=== PATIENT | male | born 1965 | race Caucasian/White ===

== ENCOUNTER 2024-12-24 10:07 | Emergency (ER) | payer OTHER, SELFPAY ==
[2024-12-24 10:13] VITALS: BP 179/100
[2024-12-24 10:27] VITALS: BMI 25.8
--- NOTE | 2024-12-24 11:28 | ED.GENMED ---
History of Present Illness
General
Chief Complaint: Musculo-Skeletal Complaint
Source: patient
Time Seen by Provider: 12/24/24 11:05
History of Present Illness
History of Present Illness:
59-year-old male with past medical history of hypertension, hyperlipidemia, insulin-dependent diabetes, previous CT, status post cervical fusion from approximately 13 years ago presenting to the emergency department for evaluation of left-sided neck
pain that has been ongoing for the last few weeks/months but made acutely worse this past Monday after he accidentally stumbled and grabbed onto the banister stating his body fell to the right but his left arm and neck went to the left and since
that time has had increased burning paresthesia and pain to the left upper extremity. Patient states it feels as if his left little finger is numb. He recently moved back to this area from [place] and is currently in the process of trying to get a
back/neck specialist. Denies any fevers, headaches, visual disturbances, chest pain or shortness of breath or any other concerns.
Past History
Past History
ED Past Medical History: CAD, HTN, Hypercholesterolemia, IDDM and CT
ED Past Surgical History: Cardiac and Orthopedic
Social History
Tobacco: Non-smoker
Alcohol: None
Drug: None
Personal:
Living: with family
Employment: Employed
Review of Systems
Review of Systems
All Other Systems: ROS reviewed and negative except as documented in HPI and ROS
Phy Exam
Physical Exam
Physical Exam:
GENERAL: Alert , in no apparent distress
EYE: conjunctiva clear
Head: Normocephalic atraumatic
NECK: Supple,
ENT: mmm.
LUNGS: no acute respiratory distress
NEUROLOGICAL: Alert and oriented, sensation grossly intact to light touch throughout the bilateral upper extremities, 2+ biceps, triceps and brachioradialis deep tendon reflexes,, full range of motion of the left upper extremity, 5 out of 5 strength
upper extremities bilateral but patient does report increased pain/disc with elbow flexion and extension against resistance.
SKIN: Warm and dry, skin intact.
MUSCULOSKELETAL: well perfused. Reproducible tenderness within the left trapezius muscular distribution. No muscle wasting. Intact and equal radial pulses bilateral
PSYCH: Normal and appropriate interaction.
Scores
Heart Failure Risk
Heart Failure Risk Score: Not Applicable
Heart Score for Chest Pain Patients
STEMI patient?: Not applicable
Withdrawal Assessment of Alcohol
Withdrawal Assessment Completed?: Not applicable
Course
Orders/Labs/Results
Orders:
Orders
12/24/24 10:09
Electrocardiogram (*1) Urgent
Reason for Study: Fatigue / Weakness
EKG- Treatment ONCE
12/24/24 11:22
Acetaminophen [Tylenol] 1,000 mg PO NOW STA
CR Cervical Spine 4 Or 5 Vw Urgent
Comment:
Reason For Exam: left sided radiculopathy, hx of surgery
12/24/24 11:29
Acetaminophen [Tylenol] 1,000 mg .ROUTE .STK-MED ONE
Vital Signs
Initial and Last Documented VS:
Initial Vital Signs
Temp Pulse Resp BP Pulse Ox
98.6 F 91 16 179/100 98
12/24/24 10:13 12/24/24 10:13 12/24/24 10:13 12/24/24 10:13 12/24/24 10:13
Last Documented Vital Signs
Temp Pulse Resp BP Pulse Ox
98.6 F 91 16 179/100 98
12/24/24 10:13 12/24/24 10:13 12/24/24 10:13 12/24/24 10:13 12/24/24 10:13
MDM/Problems Addressed
Differential Diagnosis Includes:
Radiculopathy likely secondary to disc herniation or nerve impingement, hardware malfunction, less concern for infectious etiology or fracture given no direct trauma
MDM/Problems Addressed:
59-year-old male presenting to the emergency department for evaluation of left lateral neck pain and radiculopathy that has been ongoing since Monday since he accidentally tripped, caught himself prior to falling but felt a popping sensation in
his neck and has had radicular symptoms since. History of cervical fusion without complications since but he has been having some increased pain and paresthesia over the last few weeks/months. Patient is neurologically intact. Considered CT
imaging however given patient has hardware there would likely be beam artifact and this could obscure any potential abnormalities. Will obtain x-ray to further assess. I did discuss with patient that he would likely need MRI if symptoms continued.
Will refer to spine for follow-up. Will treat here with Tylenol at patient's request. Will also treat with additional Medrol Dosepak and offer patient muscle relaxant to use for further pain as needed.
Chronic conditions affecting care: Other (Previous cervical spine surgery)
Acute Exacerbation and/or Progression of Chronic Illness: Other (cervical spine surgery)
*Radiology
Radiology exam reviewed: preliminary read by ED provider
*Pulse Oximetry
Patient hypoxic: no
*EKG
Heart Rate: 89
Rate: normal
Rhythm: sinus
[place]: normal axis
Ischemia: no ischemia
*Critical Care Note
Total Time (30-74mins, 75-104mins- exclusive of procedures): Not Applicable
Patient Management
Escalation/DeEscalation of care consider admission/obs:
X-ray with degenerative changes but no acute abnormalities. This time I do think it is reasonable patient to be discharged home and follow-up as an outpatient. He currently does not have a primary care provider due to recently relocating to this
area. I did reach out to the primary care referral line who will contact the patient for a follow-up. I also referred the patient to Ortho and neurosurgery for follow-up. Prescription for Medrol Dosepak sent to pharmacy. Patient is otherwise
stable for home.
ED Attending Note
-
Portions of this chart may have been created with voice recognition software.� Occasional wrong word or��sound alike� substitutions may have occurred due to the inherent limitations of voice recognition software.
Discharge Plan
Departure
Patient Disposition: Home (Routine Discharge)
Date of Disposition: 12/24/24
Time of Disposition: 12:47
Patient with high blood pressure during this ER visit?: Yes
Discharge Problem:
Cervical radiculopathy
Instructions: Radiculopathy of the neck and back (including sciatica) - Discharge instruc
Prescriptions:
New
methylprednisolone [Medrol (Jonathan)] 4 mg tablets,dose pack
4 mg PO DIRECTED Qty: 21 0RF
No Action
atorvastatin 80 mg Tablet
80 mg PO HS
metoprolol succinate 50 mg Tablet Extended Release 24 Hr
50 mg PO DAILY
clopidogrel 75 mg Tablet
75 mg PO DAILY
amlodipine 5 mg Tablet
5 mg PO DAILY
famotidine 20 mg Tablet
20 mg PO BID
calcium carbonate 500 mg calcium (1,250 mg) Tablet
500 mg PO TID
ferrous sulfate 325 mg (65 mg iron) Tablet
325 mg PO DAILY
furosemide 20 mg Tablet
20 mg PO DAILY
magnesium oxide 400 mg magnesium Tablet
400 mg PO DAILY
insulin glargine [Lantus Solostar U-100 Insulin] 100 unit/mL (3 mL) Insulin Pen
10 unit SC QPM
aspirin 81 mg Tablet,Chewable
81 mg PO DAILY
acetaminophen 325 mg Tablet
650 mg PO Q4HPRN PRN (Reason: PAIN) Qty: 100 0RF
gabapentin 100 mg Capsule
300 mg PO TID Qty: 270 0RF
Referrals:
NONE,* [Family Provider] -
Shelley Dobbins MD [Active] - (Neurosurgery)
Juni Yan MD [Active] - (Ortho)
Interventions
Interventions:
*Risk Screen - Suicide Last Done: 12/24/24 10:13
*General Assessment Last Done: 12/24/24 10:13
*Neglect/Abuse Screening Last Done: 12/24/24 10:13
*ED- Fall Risk Assessment Last Done: 12/24/24 10:27
*ED COVID-19 Vaccine History Last Done: 12/24/24 10:27
*Nursing Disposition Last Done: 12/24/24 12:56
ED-Musculoskeletal Assessment Last Done: 12/24/24 10:27
Discharge Date and Time
Discharge Date/Time: 12/24/24 13:00
Print Language: ARABIC
[2024-12-24] MEDS: TYLENOL 1000 MG PO (11:31)
== END 2024-12-24 13:00 | disposition home or self-care (01) ==
LOC: EMR 10:07
PROVIDERS: EMERGENCY PHYSICIAN Emergency Medicine
DX: M54.12 Radiculopathy, cervical region (principal); E11.9 Type 2 diabetes mellitus without complications; E78.00 Pure hypercholesterolemia, unspecified; I10 Essential (primary) hypertension; I25.10 Atherosclerotic heart disease of native coronary artery without angina pectoris; I25.2 Old myocardial infarction; Z79.4 Long term (current) use of insulin
CPT/HCPCS: 99284; 72050; 93005